=== PATIENT | female | born 1980 | race African-American/Black ===

== ENCOUNTER 2024-05-01 05:58 | Emergency (ER) | payer OTHER ==
[2024-05-01 06:03] VITALS: TEMP 98.3; BMI 28.2
[2024-05-01] MEDS ORDERED: METOCLOPRAMIDE HCL INJECTION 10 MG/2 ML VIAL ONE (07:58)
[2024-05-01 08:11] LABS: INR 1.03 (0.83-1.09); PROTHROMBIN TIME (PATIENT) 11.8 SEC (9.7-13.0)
[2024-05-01] MEDS: DEXTROSE 5%-NORMAL SALINE 1,000 ML IV ONE (08:12)
[2024-05-01] MEDS: METOCLOPRAMIDE HCL INJECTION 10 MG/2 ML VIAL IVPUSH ONE (08:13)
[2024-05-01 08:14] LABS: ACTIVATED PTT 26.1 SECONDS (25.2-36.5)
[2024-05-01] MEDS ORDERED: ACETAMINOPHEN INJECTION 100 ML IVPB ONE (08:14)
[2024-05-01 08:16] LABS: BASO % 0.5 % (0-2.0); EOS % 0.6 % (0-4.5); HEMATOCRIT 34.9 % (32.4-45.2); HEMOGLOBIN 12.3 GM/dL (10.7-15.3); LYMPH % 24.1 % (8-40); MCHC 35.4 g/dl (32.0-36.0); MEAN CELL VOLUME 84.8 fl (80-96); MEAN PLT VOLUME 7.6 fl (7.5-11.1); NEUT % 66.8 % (42.8-82.8); PLATELET COUNT 288 10^3/uL (134-434); RBC 4.12 M/mm3 (3.60-5.2); RDW 13.7 % (11.6-15.6); WHITE BLOOD COUNT 7.1 K/mm3 (4.0-10.0)
[2024-05-01 08:21] LABS: POTASSIUM 4.4 mmol/L (3.5-5.1)
[2024-05-01 08:23] LABS: ALBUMIN 3.4 g/dl (3.4-5.0); BLOOD UREA NITROGEN 4.6 mg/dL (7-18); CALCIUM 8.8 mg/dL (8.5-10.1); URINE APPEARANCE CLEAR; URINE BILIRUBIN NEGATIVE (NEGATIVE); URINE COLOR YELLOW; URINE GLUCOSE (UA) NEGATIVE (NEGATIVE); URINE KETONE NEGATIVE (NEGATIVE); URINE LEUK ESTERASE NEGATIVE (NEGATIVE); URINE NITRITE NEGATIVE (NEGATIVE); URINE PROTEIN NEGATIVE (NEGATIVE)
[2024-05-01 08:26] LABS: CREATININE 0.6 mg/dL (0.55-1.3)
[2024-05-01 08:28] LABS: BILIRUBIN,TOTAL 0.6 mg/dL (0.2-1); TOT PROT 7.7 g/dl (6.4-8.2)
[2024-05-01] MEDS: ACETAMINOPHEN 1000 MG/100 ML BAG IVPB ONE (10:18)
[2024-05-01 12:21] VITALS: BP 105/59; PULSE 69; RESP 18
== END 2024-05-01 12:26 | disposition home or self-care (01) ==
LOC: JER 05:58
PROC: 3E033NZ Introduction of Analgesics, Hypnotics, Sedatives into Peripheral Vein, Percutaneous Approach (ICD-10-PCS; principal; 2024-05-01)
PROC: 3E033GC Introduction of Other Therapeutic Substance into Peripheral Vein, Percutaneous Approach (ICD-10-PCS; 2024-05-01)
PROC: 3E0337Z Introduction of Electrolytic and Water Balance Substance into Peripheral Vein, Percutaneous Approach (ICD-10-PCS; 2024-05-01)
DX: O21.9 Vomiting of pregnancy, unspecified (principal); O26.851 Spotting complicating pregnancy, first trimester; O26.891 Other specified pregnancy related conditions, first trimester; R10.31 Right lower quadrant pain; Z3A.01 Less than 8 weeks gestation of pregnancy
CPT/HCPCS: 36415; 76817-TC; 76856-TC; 80053; 81003; 83735; 84702; 84703; 85025; 85610; 85730; 86850; 86900; 86901; 87086; 99284-25; J0131

== ENCOUNTER 2024-10-08 07:45 | Emergency (ER) | payer OTHER ==
[2024-10-08 07:55] VITALS: BP 128/74; PULSE 68; RESP 17; TEMP 98.2; BMI 26.6
[2024-10-08] MEDS ORDERED: LIDOCAINE 4% PATCH TP ONE ×2 (08:13→08:14)
[2024-10-08] MEDS ORDERED: KETOROLAC TROMETHAMINE 30 MG/1 ML VIAL ONE ×2 (08:14)
[2024-10-08] MEDS: LIDOCAINE 4% PATCH TP ONE (08:19)
[2024-10-08] MEDS: KETOROLAC TROMETHAMINE 30 MG/1 ML VIAL IM ONE (08:20)
== END 2024-10-08 08:46 | disposition home or self-care (01) ==
LOC: JERFT 07:45 → JER 07:45 → JERFT 08:46
PROC: 3E0133Z Introduction of Anti-inflammatory into Subcutaneous Tissue, Percutaneous Approach (ICD-10-PCS; principal; 2024-10-08)
DX: M54.50 Low back pain, unspecified (principal); W01.0XXA Fall on same level from slipping, tripping and stumbling without subsequent striking against object, initial encounter; Y99.0 Civilian activity done for income or pay
CPT/HCPCS: 99284-25